=== PATIENT | male | born 1990 | race American Indian/Alaskan Native ===

== ENCOUNTER 2017-05-02 19:53 | Inpatient (IN) | payer SELFPAY ==
[2017-05-02] MEDS ORDERED: ZOFRAN ODT ONE (20:18)
[2017-05-02 20:34] LABS: Basophils # (Auto) 0.1 K/mm3 (0.0-0.1); Basophils % (Auto) 0.8 % (0.0-1.8); Hematocrit 46.9 % (35.5-45.6); Hemoglobin 15.6 gm/dl (11.8-15.2); Lymphocytes # (Auto) 1.9 K/mm3 (1.2-5.4); Lymphocytes % (Auto) 26.8 % (13.4-35.0); Mean Corpuscular HGB Conc 33 % (32-34); Mean Corpuscular Hemoglobin 27 pg (28-32); Mean Corpuscular Volume 82 fl (84-94); Monocytes # (Auto) 0.6 K/mm3 (0.0-0.8); Monocytes % (Auto) 8.8 % (0.0-7.3); Platelet Count 165 K/mm3 (140-440); Red Blood Count 5.69 M/mm3 (3.65-5.03); Red Cell Distribution Width 13.3 % (13.2-15.2)
[2017-05-02 20:53] LABS: Alanine Aminotransferase 74 units/L (7-56); Albumin 3.9 g/dL (3.9-5); BUN/Creatinine Ratio 11; Blood Urea Nitrogen 8 mg/dL (9-20); Calcium 8.5 mg/dL (8.4-10.2); Hemolysis Index 23
[2017-05-02] MEDS ORDERED: NACL 0.9% 1000 ML 1,000 ML IV ONE (22:51)
[2017-05-02] MEDS ORDERED: ZOFRAN IV ONE (22:51)
[2017-05-02 22:56] LABS: Bilirubin,Urine NEG (Negative); Blood,Urine NEG (Negative); Color,Urine Yellow (Yellow); Mucus,Urine FEW /HPF; Urobilinogen,Urine < 2.0 mg/dL (<2.0)
[2017-05-02 23:32] LABS: Lipase 40 units/L (13-60)
--- NOTE | 2017-05-02 23:46 | Emergency Department Report ---
ED Abdominal Pain HPI - General Chief Complaint: Abdominal Pain Stated Complaint: ABD PAIN Time Seen by Provider: 05/02/17 22:39 Source: patient Mode of arrival: Ambulatory Limitations: No Limitations - History of Present Illness Initial Comments: 4 days ago, states he was weak, coughing, sore throat, then abdominal pain, then vomiting and diarrhea. No previous history of these constellation of symptoms before, was diagnosed with diabetes 2 years ago, He has not had any insulin since january, reports that his insurance has not "kicked in." Chest pain with cough and difficulty breathing. MD Complaint: abdominal pain -: Gradual Location: diffuse Radiation: other (weakness) Migration to: no migration Severity: moderate Severity scale (0 -10): 0 Quality: other (soreness, then sharp) Consistency: intermittent Improves With: nothing Worsens With: nothing Associated Symptoms: nausea, vomiting, diarrhea, fever, chills. denies: dysuria , hematemesis, hematochezia, melena - Related Data Allergies Allergy/AdvReac Type Severity Reaction Status Date / Time No Known Allergies Allergy Unverified 05/02/17 20:12 ED Review of Systems ROS: Stated complaint: ABD PAIN Other details as noted in HPI Comment: All other systems reviewed and negative Constitutional: see HPI Eyes: as per HPI ENT: as per HPI Respiratory: see HPI Cardiovascular: as per HPI Endocrine: see HPI Gastrointestinal: as per HPI Genitourinary: as per HPI Musculoskeletal: as per HPI Skin: as per HPI Neurological: as per HPI Psychiatric: as per HPI ED Past Medical Hx - Past Medical History Previous Medical History?: Yes Hx Diabetes: Yes - Surgical History Past Surgical History?: No - Social History Smoking Status: Never Smoker ED Physical Exam - General Limitations: No Limitations General appearance: alert, in no apparent distress - Eye Eye exam: Present: normal appearance, PERRL, EOMI - ENT ENT exam: Present: normal exam - Neck Neck exam: Present: normal inspection - Respiratory Respiratory exam: Present: normal lung sounds bilaterally. Absent: respiratory distress, wheezes, rales, rhonchi - Cardiovascular Cardiovascular Exam: Present: regular rate, normal rhythm, normal heart sounds - GI/Abdominal GI/Abdominal exam: Present: soft, tenderness (mild generalized), normal bowel sounds - Extremities Exam Extremities exam: Present: normal inspection ED Course Vital Signs 05/02/17 05/02/17 20:08 22:30 Temperature 100.1 F H 100.2 F H Pulse Rate 106 H 89 Respiratory 18 16 Rate Blood Pressure 130/83 Blood Pressure 139/78 [Right] O2 Sat by Pulse 93 96 Oximetry - Reevaluation(s) Reevaluation #1: 05/03/17 01:19 CT findings are concerning, called hospitalist, we will admit the patient, begin IV antibiotics. No serum ketones and blood sugar has come down. 05/03/17 01:47 Discussed with hospitalist who advised to put in bridge orders, start antibiotics. ED Medical Decision Making - Lab Data Result diagrams: 05/02/17 20:23 05/02/17 20:23 Critical care attestation.: If time is entered above; I have spent that time in minutes in the direct care of this critically ill patient, excluding procedure time. ED Disposition Clinical Impression: Colitis Disposition: DC-09 OP ADMIT IP TO THIS HOSP Is pt being admited?: Yes Does the pt Need Aspirin: No Condition: Stable Referrals: PRIMARY CARE, [Primary Care Provider] - 3-5 Days
--- NOTE | 2017-05-03 01:00 | Cat Scan Report ---
FINAL REPORT EXAM: CT ABDOMEN PELVIS W CONTRAST HISTORY: Abdominal pain. Nausea and vomiting. TECHNIQUE: Axial CT images of the abdomen and pelvis were obtained, following the administration of intravenous contrast only. Axial delayed images through the abdomen and pelvis and coronal and sagittal reformatted images were also obtained. No prior studies are available for comparison. FINDINGS: There is moderate diffuse fatty infiltration of the liver. The biliary tree, gallbladder, pancreas, spleen, adrenal glands, and kidneys are unremarkable. There is no evidence of urinary tract obstruction. Evaluation of the bowel is limited due to lack of oral contrast. The stomach is collapsed, not well evaluated. There is mild abnormal wall thickening involving the cecum and ascending colon, indicating nonspecific colitis, most commonly due to inflammatory or infectious etiologies (including inflammatory bowel disease). There are foci of air in the proximal portion of the appendix. The mid to distal appendix is fluid-filled, with borderline distention, measuring 7-8 mm in diameter. No surrounding inflammatory stranding is seen. This is of uncertain etiology, and may be secondary to adjacent colitis, favored over acute appendicitis. However, correlation with physical exam is recommended. There are several subcentimeter lymph nodes interposed in the cecum and right psoas muscle. The rectum is collapsed, and underlying wall thickening cannot be evaluated. The abdominal aorta is normal in caliber. Multiple subcentimeter retroperitoneal and central mesenteric lymph nodes are seen, measuring up to 6 mm in maximal short axis. There is no free or loculated fluid collection. The prostate gland is normal in size. The urinary bladder is unremarkable. No discrete osseous abnormality is seen. There is scattered tiny foci of subsegmental dependent atelectasis. These findings were discussed with Dr. Pearce at time of interpretation 12:54 a.m. EST 05/03/2017. IMPRESSION: 1. Mild wall thickening involving the cecum and ascending colon, in keeping with nonspecific colitis, most commonly due to inflammatory or infectious etiologies (including inflammatory bowel disease/Crohn's disease). 2. Borderline distention of the portions of the appendix to 7-8 mm in diameter. This is of uncertain clinical significance and may be secondary to adjacent colitis, favored over acute appendicitis. No surrounding inflammatory changes. Correlation with physical exam and clinical history is recommended. 3. Moderate diffuse fatty infiltration of the liver.
[2017-05-03] MEDS ORDERED: ZOSYN/NS 3.375GM/50ML 3.375 GM/50 ML BAG IV SCH (02:00)
[2017-05-03] MEDS ORDERED: TYLENOL PO PRN (02:47)
[2017-05-03] MEDS ORDERED: ZOFRAN IV PRN (02:47)
[2017-05-03] MEDS ORDERED: MORPHINE IV PRN (02:52)
--- NOTE | 2017-05-03 03:06 | History and Physical Report ---
History of Present Illness Date of examination: 05/03/17 History of present illness: 26-year-old man at a history of diabetes comes emergency room with complaints of abdominal pain that started on Monday. Pain starts in the lower abdomen which she describes as a sharp pain, intermittent in nature every 30 seconds, intensity 8/10, radiating up all over his abdomen, he generally identify exacerbating or relieving factors. He also complaining of nausea and vomiting, diarrhea, nonbloody, at least 4-5 episodes a day. He denies recent antibiotic. Admits to fever chills. Also complaining of decreased energy Review Of Systems: Constitutional: no weight loss Ears, eyes, nose, mouth and throat: no nasal congestion, no nasal discharge, no sinus pressure, blurry vision, diplopia Neck: No neck pain or rigidity. Cardiovascular: No chest pain, palpitations Respiratory: No shortness of breath, cough Gastrointestinal: No hematochezia Genitourinary : no dysuria, frequency , hematuria Musculoskeletal: no muscle ache Integumentary: no rash, no pruritis Neurological: no focal weakness Endocrine: no cold or heat intolerance, no polyuria or polydipsia Hematologic/Lymphatic: no easy bruising, no easy bleeding, no gland swelling Allergic/Immunologic: no urticaria, no angioedema. PAST MEDICAL HISTORY: Diabetes PAST SURGICAL HISTORY: None SOCIAL HISTORY: Denies alcohol, tobacco, drugs FAMILY HISTORY: Hypertension, diabetes Medications and Allergies Allergies Allergy/AdvReac Type Severity Reaction Status Date / Time No Known Allergies Allergy Unverified 05/02/17 20:12 Active Meds: Active Medications Acetaminophen (Tylenol) 650 mg PO Q4H PRN PRN Reason: Pain MILD(1-3)/Fever >100.5/BUTTS Sodium Chloride (Nacl 0.45% 1000 Ml) 1,000 mls @ 125 mls/hr IV DIRECT ANNEMARIE Piperacillin Sod/Tazobactam Sod (Zosyn/Ns 4.5gm/100ml) 4.5 gm in 100 mls @ 200 mls/hr IV Q8H ANNEMARIE; Protocol Morphine Sulfate (Morphine) 2 mg IV Q4H PRN PRN Reason: Pain, Moderate (4-6) Ondansetron HCl (Zofran) 4 mg IV Q8H PRN PRN Reason: Nausea And Vomiting Exam - Physical Exam Narrative exam: Gen. appearance: Patient lying in bed, no apparent distress HEENT: Normocephalic, atraumatic, pupils equally round and reactive to light, extraocular movement intact, and no sclericterus,. No JVD or thyromegaly or nodule,neck supple, no carotid bruit ,mucous membranes moist, no exudate or erythema Heart: S1, S2, regular rate and rhythm Lungs: Clear to auscultation bilaterally, breathing comfortable Abdomen: Positive bowel sounds, tender lower quadrants, nondistended, no organomegaly Extremity: No edema, cyanosis, clubbing Skin: No rash, nodules, warm, dry Neuro: Oriented 3, cranial nerves II-12 intact, speech is fluent, motor and sensory intact - Constitutional Vitals: Temp Pulse Resp BP Pulse Ox 99.3 F 88 14 102/54 97 05/03/17 02:26 05/03/17 02:26 05/03/17 02:26 05/03/17 02:26 05/03/17 02:26 Results - Labs CBC & Chem 7: 05/02/17 20:23 05/02/17 20:23 Labs: Abnormal lab results 05/02/17 05/02/17 05/02/17 Range/Units 20:23 20:23 23:16 RBC 5.69 H (3.65-5.03) M/mm3 Hgb 15.6 H (11.8-15.2) gm/dl Hct 46.9 H (35.5-45.6) % MCV 82 L (84-94) fl MCH 27 L (28-32) pg [place] % (Auto) 8.8 H (0.0-7.3) % Chloride 94.0 L (98-107) mmol/L BUN 8 L (9-20) mg/dL Creatinine 0.7 L (0.8-1.5) mg/dL Glucose 301 H (75-100) mg/dL POC Glucose 263 H (70-105) AST 79 H (5-40) units/L ALT 74 H (7-56) units/L - Imaging and Cardiology EKG: image reviewed CT scan - abdomen: report reviewed CT scan - pelvis: report reviewed Assessment and Plan Assessment Acute colitis Borderline distention of the appendix Diabetes Plan Admit to medicine Placed on bowel rest Start IV Zosyn, IV morphine, antiemetics Consult GI, surgery Check fingersticks and initiate insulin sliding scale DVT prophylaxis
[2017-05-03] MEDS: NACL 0.45% 1000 ML 1,000 ML IV SCH ×3 (05:09→23:12)
[2017-05-03] MEDS: ZOSYN/NS 4.5GM/100ML 4.5 GM/100 ML VIAL IV SCH ×3 (10:00→23:10)
[2017-05-03] MEDS ORDERED: D50W (25GM) Syringe IV PRN (13:25)
[2017-05-03] MEDS: NOVOLOG SUB-Q SCH ×2 (17:00→23:10)
--- NOTE | 2017-05-03 17:35 | Event Note ---
Date: 05/03/17 Full consult dictated - if tolerating po in am ok to d/c on po antibiotics w/ colonoscopy as outpt
--- NOTE | 2017-05-03 22:24 | Consultation ---
INDICATIONS: 1. Abdominal pain. 2. Colitis. HISTORY OF PRESENT ILLNESS: The patient is a 26-year-old black male who presents to the Emergency Room for abdominal pain. The patient has a history of diabetes. The patient reports symptoms of lower abdominal pain started Mc, 4-5 days ago. He reports some nausea, vomiting with some diarrhea, but nonbloody. He reports no history of this in the past. Denies any GERD. Denies any recent diet or medication changes. The patient subsequently came to Emergency Room where he had a CT scan showing colitis. He subsequently admitted and GI consulted. PAST MEDICAL HISTORY: Diabetes. MEDICATIONS: See chart. ALLERGIES: No known drug allergies. SOCIAL HISTORY: Denies alcohol, tobacco, or IV drug abuse. FAMILY HISTORY: Negative for colon cancer, IBD, or liver disease. REVIEW OF SYSTEMS: GENERAL: Reports mild weakness. HEENT: No visual complaints or tinnitus. PULMONARY: No shortness of breath. CARDIOVASCULAR: No chest pain. GASTROINTESTINAL: Reports abdominal pain. All points of 13-point review of systems otherwise negative. PHYSICAL EXAMINATION: VITAL SIGNS: Temperature of 99.3, pulse 70, respiration 18, blood pressure 130/80. GENERAL: Fairly nourished male in no acute distress. HEENT: Pupils equal, round and reactive. PULMONARY: Clear to auscultation bilaterally. CARDIOVASCULAR: Regular rhythm. Normal S1, S2. ABDOMEN: Positive bowel sounds, soft. SKIN: No obvious rashes. LABORATORY DATA: Pertinent for white count of 7, hemoglobin and hematocrit of 15 and 46, platelet count of 165. Chem-7 within normal limits. AST, ALT of 79 and 74, but otherwise benign. CT scan showed signs of mild wall thickening along the right colon, but otherwise benign. ASSESSMENT AND PLAN: A 26-year-old black male presents with 4-5 days of lower abdominal pain with CT scan showing right-sided colitis, possibility of infectious versus inflammatory process versus other. The patient is doing well. He is tolerating p.o., including a regular diet. Management is noted below. PLAN: 1. Advance diet as tolerated. 2. Continue IV antibiotics with Levaquin and Flagyl. We will plan to complete 7-10 day course as an outpatient. 3. The patient will require colonoscopy as an outpatient in 3-4 weeks. 4. If stable in a.m., okay to discharge from GI standpoint with followup. JOB# [id number] HIEU/PUNEET HOPSON
[2017-05-04 06:11] LABS: Basophils % (Auto) 0.6 % (0.0-1.8); Eosinophils % (Auto) 0.3 % (0.0-4.3); Hematocrit 39.6 % (35.5-45.6); Hemoglobin 13.3 gm/dl (11.8-15.2); Lymphocytes # (Auto) 1.5 K/mm3 (1.2-5.4); Lymphocytes % (Auto) 32.7 % (13.4-35.0); Mean Corpuscular HGB Conc 34 % (32-34); Mean Corpuscular Hemoglobin 28 pg (28-32); Mean Corpuscular Volume 82 fl (84-94); Monocytes # (Auto) 0.5 K/mm3 (0.0-0.8); Platelet Count 141 K/mm3 (140-440); Red Blood Count 4.83 M/mm3 (3.65-5.03); Red Cell Distribution Width 13.1 % (13.2-15.2)
[2017-05-04 06:30] LABS: BUN/Creatinine Ratio 9; Blood Urea Nitrogen 6 mg/dL (9-20); Calcium 7.7 mg/dL (8.4-10.2); Hemolysis Index 9
[2017-05-04] MEDS: ZOSYN/NS 4.5GM/100ML 4.5 GM/100 ML VIAL IV SCH ×2 (08:27→16:14)
[2017-05-04] MEDS: NOVOLOG SUB-Q SCH ×2 (08:28→12:00)
[2017-05-04 08:37] VITALS: BP 104/54
--- NOTE | 2017-05-04 12:30 | Discharge Summary ---
Providers - Providers Date of Admission: 05/03/17 01:48 Attending physician: CRAIG RUBI MD 05/03/17 02:47 Consult to Physician [CONS] Routine Consulting Provider: CIPRIANO VASQUES Reason For Exam: colitis Place consult to:: dr. vasques Notified:: answering service Phone number called:: Was contact made?: Yes If yes, spoke with:: madhavi Time called:: 08:37 05/03/17 13:25 Consult to Dietitian/Nutrition [CONS] Routine Physician Instructions: Reason For Exam: Reason for Consult: Diet education Primary care physician: PRODUCTION LEADER Hospitalization Condition: Stable Hospital course: 26-year-old male with a past medical history of type 2 diabetes who presented to the hospital with acute colitis. He was treated with IV antibiotics antiemetics, he was started on insulin sliding scale. It turned out that he had lost his insurance and that was why he was not on treatment for this. He was counseled that his A1c was very much elevated and that he needs to stay on insulins. He is medically optimized, he received GI consultation and he is being discharged with an antibiotic course for treatment of acute bacterial colitis. Discharge diagnoses Acute colitis Type 2 diabetes, insulin-dependent URTI Disposition: - TO HOME OR SELFCARE Time spent for discharge: 33 minutes Core Measure Documentation - Palliative Care Palliative Care/ Comfort Measures: Not Applicable - Core Measures Any of the following diagnoses?: none Exam - Constitutional Vitals: Temp Pulse Resp BP Pulse Ox 99.2 F 84 20 104/54 98 05/04/17 08:07 05/04/17 08:07 05/04/17 08:07 05/04/17 08:07 05/04/17 10:18 General appearance: Present: no acute distress, well-nourished - EENT Eyes: Present: PERRL ENT: hearing intact, clear oral mucosa - Neck Neck: Present: supple, normal ROM - Respiratory Respiratory effort: normal Respiratory: bilateral: CTA - Cardiovascular Heart Sounds: Present: S1 & S2. Absent: rub, click - Extremities Extremities: pulses symmetrical, No edema Peripheral Pulses: within normal limits - Abdominal General gastrointestinal: Present: soft, non-tender, non-distended, normal bowel sounds Male genitourinary: Present: normal - Integumentary Integumentary: Present: clear, warm, dry - Musculoskeletal Musculoskeletal: gait normal, strength equal bilaterally - Psychiatric Psychiatric: appropriate mood/affect, intact judgment & insight - Neurologic Neurologic: CNII-XII intact, moves all extremities Plan Follow up with: PRIMARY CARE, [Primary Care Provider] - 3-5 Days [facility] [Outside] - 7 Days Forms: Work/School Release Form Prescriptions: Ciprofloxacin HCl [Ciprofloxacin TAB] 500 mg PO Q12H #14 tab guaiFENesin [Robitussin] 200 mg PO Q4HR #1 bottle Insulin NPH/Regular [Novolin 70/30] 5 unit SQ BIDDIAB #1 vial metroNIDAZOLE [Flagyl] 500 mg PO Q8HR #21 tablet Other Discharge Orders: Glucometer supplies[Amb] Location: None Selected Glucometer (Amb) Location: None Selected
--- NOTE | 2017-05-04 15:29 | Gastroenterology Progress Note ---
Assessment and Plan GI: resolving colitis - will need colonoscopy as outpt - complete po antibiotics as outpt - ok to d/c w/ follow up, will sign off Subjective Date of service: 05/04/17 Interval history: - pt reports feeling better Objective - Constitutional Vitals: Temp Pulse Resp BP Pulse Ox 99.2 F 84 20 104/54 98 05/04/17 08:07 05/04/17 08:07 05/04/17 08:07 05/04/17 08:07 05/04/17 10:18 General appearance: no acute distress - EENT Eyes: PERRL - Respiratory Respiratory: bilateral: CTA - Cardiovascular Rhythm: regular Heart Sounds: Present: S1 & S2 - Gastrointestinal General gastrointestinal: Present: soft, non-tender, non-distended - Labs CBC & Chem 7: 05/04/17 05:42 05/04/17 05:42 Labs: Laboratory Results - last 24 hr 05/03/17 05/03/17 05/04/17 16:15 22:04 05:42 WBC 4.6 RBC 4.83 Hgb 13.3 Hct 39.6 D MCV 82 L MCH 28 MCHC 34 RDW 13.1 L Plt Count 141 Lymph % (Auto) 32.7 [place] % (Auto) 11.0 H Eos % (Auto) 0.3 Baso % (Auto) 0.6 Lymph # 1.5 [place] # 0.5 Eos # 0.0 Baso # 0.0 Seg Neutrophils % 55.4 Seg Neutrophils # 2.5 Sodium Potassium Chloride Carbon Dioxide Anion Gap BUN Creatinine Estimated GFR BUN/Creatinine Ratio Glucose POC Glucose 181 H 234 H Hemoglobin A1c Calcium 05/04/17 05/04/17 05/04/17 05:42 05:42 06:16 WBC RBC Hgb Hct MCV MCH MCHC RDW Plt Count Lymph % (Auto) [place] % (Auto) Eos % (Auto) Baso % (Auto) Lymph # [place] # Eos # Baso # Seg Neutrophils % Seg Neutrophils # Sodium 140 Potassium 3.8 Chloride 98.8 Carbon Dioxide 28 Anion Gap 17 BUN 6 L Creatinine 0.7 L Estimated GFR > 60 BUN/Creatinine Ratio 9 Glucose 231 H POC Glucose 198 H Hemoglobin A1c 15.2 H Calcium 7.7 L 05/04/17 11:36 WBC RBC Hgb Hct MCV MCH MCHC RDW Plt Count Lymph % (Auto) [place] % (Auto) Eos % (Auto) Baso % (Auto) Lymph # [place] # Eos # Baso # Seg Neutrophils % Seg Neutrophils # Sodium Potassium Chloride Carbon Dioxide Anion Gap BUN Creatinine Estimated GFR BUN/Creatinine Ratio Glucose POC Glucose 201 H Hemoglobin A1c Calcium
[2017-05-04] MEDS ORDERED: HumaLOG SUB-Q SCH (16:30)
== END 2017-05-04 17:10 | disposition home or self-care (01) | DRG 392 ==
LOC: ED 19:53 → 3A 05-03 01:48
PROVIDERS: ADMIT Internal Medicine; ATTEND Internal Medicine
DX: A09 Infectious gastroenteritis and colitis, unspecified (principal); E11.9 Type 2 diabetes mellitus without complications; J06.9 Acute upper respiratory infection, unspecified; Z79.4 Long term (current) use of insulin; Z82.49 Family history of ischemic heart disease and other diseases of the circulatory system; Z83.3 Family history of diabetes mellitus
CPT/HCPCS: 36415; 74177; 80048; 80053; 81001; 82010; 82140; 82150; 82962; 83036; 83690; 85025; 96361; 96374; 99284; J1815; J2405; J2543; J7030; Q0162; Q9967

== ENCOUNTER 2017-05-22 21:16 | Inpatient (IN) | payer SELFPAY ==
[2017-05-22 21:55] LABS: Hematocrit 40.3 % (35.5-45.6); Hemoglobin 13.2 gm/dl (11.8-15.2); Mean Corpuscular HGB Conc 33 % (32-34); Mean Corpuscular Hemoglobin 27 pg (28-32); Mean Corpuscular Volume 82 fl (84-94); Platelet Count 288 K/mm3 (140-440); Red Blood Count 4.92 M/mm3 (3.65-5.03); Red Cell Distribution Width 13.5 % (13.2-15.2)
[2017-05-22 22:12] LABS: BUN/Creatinine Ratio 9; Blood Urea Nitrogen 6 mg/dL (9-20); Calcium 8.5 mg/dL (8.4-10.2); Hemolysis Index 0
[2017-05-23] MEDS ORDERED: VANCOMYCIN/NS 1 GM/250 ML 1 GM/250 ML BAG IV ONE (02:41)
[2017-05-23] MEDS ORDERED: ZOSYN/NS 4.5GM/100ML 4.5 GM/100 ML VIAL IV ONE (02:41)
[2017-05-23] MEDS ORDERED: ZOFRAN IV ONE (02:42)
[2017-05-23] MEDS ORDERED: SUBLIMAZE IV ONE (02:42)
--- NOTE | 2017-05-23 02:55 | Emergency Department Report ---
- General Chief complaint: Skin/Abscess/Foreign Body Stated complaint: RIGHT LEG SWELLING Time Seen by Provider: 05/23/17 02:37 Source: patient Mode of arrival: Ambulatory Limitations: No Limitations - History of Present Illness Initial comments: Patient is 26-year-old male with history of diabetes on insulin. Patient presented with right thigh cellulitis just above the left knee. Patient stated that his symptoms started 4 days ago he just got worse today. Patient denied any nausea or vomiting. Patient stated that he is been having a low-grade fever. MD complaint: abscess/boil -: days(s) Location: LLE Severity: moderate Severity scale (0 -10): 9 Quality: stabbing Consistency: constant Associated symptoms: fever - Related Data Previous Rx's Medication Instructions Recorded Last Taken Type Ciprofloxacin HCl [Ciprofloxacin 500 mg PO Q12H #14 tab 05/04/17 Unknown Rx TAB] Insulin NPH/Regular [Novolin 70/30] 5 unit SQ BIDDIAB #1 vial 05/04/17 Unknown Rx guaiFENesin [Robitussin] 200 mg PO Q4HR #1 bottle 05/04/17 Unknown Rx metroNIDAZOLE [Flagyl] 500 mg PO Q8HR #21 tablet 05/04/17 Unknown Rx Allergies Allergy/AdvReac Type Severity Reaction Status Date / Time No Known Allergies Allergy Unverified 05/02/17 20:12 Abscess Boil HPI - HPI Chief Complaint: Skin/Abscess/Foreign Body Stated Complaint: RIGHT LEG SWELLING Time Seen by Provider: 05/23/17 02:37 Home Medications: Previous Rx's Medication Instructions Recorded Last Taken Type Ciprofloxacin HCl [Ciprofloxacin 500 mg PO Q12H #14 tab 05/04/17 Unknown Rx TAB] Insulin NPH/Regular [Novolin 70/30] 5 unit SQ BIDDIAB #1 vial 05/04/17 Unknown Rx guaiFENesin [Robitussin] 200 mg PO Q4HR #1 bottle 05/04/17 Unknown Rx metroNIDAZOLE [Flagyl] 500 mg PO Q8HR #21 tablet 05/04/17 Unknown Rx Allergies/Adverse Reactions: Allergies Allergy/AdvReac Type Severity Reaction Status Date / Time No Known Allergies Allergy Unverified 05/02/17 20:12 ED Review of Systems ROS: Stated complaint: RIGHT LEG SWELLING Other details as noted in HPI Comment: All other systems reviewed and negative Constitutional: chills, fever Respiratory: denies: cough, orthopnea, shortness of breath, SOB with exertion, SOB at rest, wheezing Cardiovascular: denies: chest pain, palpitations, dyspnea on exertion Gastrointestinal: denies: abdominal pain, nausea, vomiting, diarrhea, constipation, hematemesis Skin: rash ED Past Medical Hx - Past Medical History Hx Congestive Heart Failure: No Hx Diabetes: Yes Hx Asthma: No Hx COPD: No Hx HIV: No - Social History Smoking Status: Never Smoker Substance Use Type: None - Medications Home Medications: Home Medications Medication Instructions Recorded Confirmed Last Taken Type Ciprofloxacin HCl [Ciprofloxacin 500 mg PO Q12H #14 tab 05/04/17 Unknown Rx TAB] Insulin NPH/Regular [Novolin 70/30] 5 unit SQ BIDDIAB #1 vial 05/04/17 Unknown Rx guaiFENesin [Robitussin] 200 mg PO Q4HR #1 bottle 05/04/17 Unknown Rx metroNIDAZOLE [Flagyl] 500 mg PO Q8HR #21 tablet 05/04/17 Unknown Rx ED Physical Exam - General Limitations: No Limitations General appearance: alert, in distress (due to pain) - Head Head exam: Present: atraumatic, normocephalic, normal inspection - Eye Eye exam: Present: normal appearance, PERRL - ENT ENT exam: Present: normal exam, normal orophraynx, mucous membranes moist - Neck Neck exam: Present: normal inspection, full ROM. Absent: tenderness, meningismus, lymphadenopathy, thyromegaly - Respiratory Respiratory exam: Present: normal lung sounds bilaterally. Absent: respiratory distress, wheezes, rales, rhonchi, accessory muscle use, decreased breath sounds , prolonged expiratory - Cardiovascular Cardiovascular Exam: Present: tachycardia - GI/Abdominal GI/Abdominal exam: Present: soft, normal bowel sounds. Absent: distended, tenderness, guarding, rebound, rigid, organomegaly, mass, bruit, pulsatile mass , hernia - Extremities Exam Extremities exam: Present: tenderness, normal capillary refill, other (right lower thigh redness, erythema. Not fluctuant.). Absent: normal inspection, pedal edema, joint swelling, calf tenderness - Back Exam Back exam: Present: normal inspection, full ROM. Absent: tenderness, CVA tenderness (R), CVA tenderness (L), muscle spasm, paraspinal tenderness, vertebral tenderness - Neurological Exam Neurological exam: Present: alert, oriented X3, CN II-XII intact, normal gait - Skin Skin exam: Present: warm, intact, normal color. Absent: cyanosis, diaphoretic ED Course Vital Signs 05/22/17 05/22/17 05/23/17 21:31 21:41 02:51 Temperature 99.5 F 99.5 F Pulse Rate 105 H 105 H Respiratory 16 18 18 Rate Blood Pressure 154/90 154/90 O2 Sat by Pulse 97 97 97 Oximetry - Reevaluation(s) Reevaluation #1: 05/23/17 02:58 No clinical evidence of necrotizing fasciitis at this moment. No crepitus felt. There is not fluctuant so as not an abscess yet. Patient will need IV antibiotic and further management in the hospital. ED Medical Decision Making - Lab Data Result diagrams: 05/22/17 21:48 05/22/17 21:48 - Medical Decision Making I discussed the patient was Dr. Mary Ann Combs, I presented the patient, she agreed to admit the patient to our service. Critical care attestation.: If time is entered above; I have spent that time in minutes in the direct care of this critically ill patient, excluding procedure time. ED Disposition Clinical Impression: Cellulitis of right thigh, Diabetes Disposition: DC-09 OP ADMIT IP TO THIS HOSP Is pt being admited?: Yes Condition: Stable Instructions: Diabetes Mellitus Type 2 in Adults (ED) Referrals: PRIMARY CARE, [Primary Care Provider] - 3-5 Days
[2017-05-23] MEDS ORDERED: VANCOMYCIN/0.45 NS 1 GM/250 ML 1 GM/250 ML BAG IV ONE (03:00)
[2017-05-23] MEDS: NACL 0.9% 1000 ML 1,000 ML IV SCH ×2 (03:15→14:33)
[2017-05-23] MEDS ORDERED: D50W (25GM) Syringe IV PRN (03:41)
[2017-05-23] MEDS ORDERED: ZOFRAN IV PRN (03:41)
[2017-05-23] MEDS ORDERED: SODIUM CHLORIDE FLUSH SYRINGE 10 ML IV PRN (03:41)
--- NOTE | 2017-05-23 03:50 | History and Physical Report ---
History of Present Illness Date of examination: 05/23/17 History of present illness: 26 year old man with Diabetes com to the emergency room because he developed a bump on the back of the right thigh. The bump got bigger and increased in size. He has difficulty walking due to pain Review Of Systems: Constitutional: no weight loss Ears, eyes, nose, mouth and throat: no nasal congestion, no nasal discharge, no sinus pressure, blurry vision, diplopia Neck: No neck pain or rigidity. Cardiovascular: no chest pain, orthopnea, palpitations Respiratory: NO cough, shortness of breath Gastrointestinal: no abdominal pain, hematochezia Genitourinary : no dysuria, frequency , hematuria Musculoskeletal: no muscle ache Integumentary: no rash, no pruritis Neurological: no parathesias, focal weakness Endocrine: no cold or heat intolerance, no polyuria or polydipsia Hematologic/Lymphatic: no easy bruising, no easy bleeding, no gland swelling Allergic/Immunologic: no urticaria, no angioedema. PAST MEDICAL HISTORY: Diabetes PAST SURGICAL HISTORY: None SOCIAL HISTORY: Denies alcohol, tobacco, drugs FAMILY HISTORY: Hypertension, diabetes Medications and Allergies Allergies Allergy/AdvReac Type Severity Reaction Status Date / Time No Known Allergies Allergy Unverified 05/02/17 20:12 Home Medications Medication Instructions Recorded Confirmed Last Taken Type Ciprofloxacin HCl [Ciprofloxacin 500 mg PO Q12H #14 tab 05/04/17 Unknown Rx TAB] Insulin NPH/Regular [Novolin 70/30] 5 unit SQ BIDDIAB #1 vial 05/04/17 Unknown Rx guaiFENesin [Robitussin] 200 mg PO Q4HR #1 bottle 05/04/17 Unknown Rx metroNIDAZOLE [Flagyl] 500 mg PO Q8HR #21 tablet 05/04/17 Unknown Rx Active Meds: Active Medications Sodium Chloride (Nacl 0.9% 1000 Ml) 1,000 mls @ 150 mls/hr IV DIRECT ANNEMARIE Last Admin: 05/23/17 03:15 Dose: 150 mls/hr Vancomycin HCl (Vancomycin/0.45 Ns 1 Gm/250 Ml) 1 gm in 250 mls @ 250 mls/hr IV ONCE.ED ONE Stop: 05/23/17 03:59 Exam - Physical Exam Narrative exam: Gen. appearance: Patient lying in bed, no apparent distress HEENT: Normocephalic, atraumatic, pupils equally round and reactive to light, extraocular movement intact, and no sclericterus,. No JVD or thyromegaly or nodule,neck supple, no carotid bruit ,mucous membranes moist, no exudate or erythema Heart: S1, S2, regular rate and rhythm Lungs: Clear to auscultation bilaterally, breathing comfortable Abdomen: Positive bowel sounds, nontender, nondistended, no organomegaly Extremity: Right post thigh:erythema, indurated, tender, No edema, cyanosis, clubbing Skin: No rash, nodules, warm, dry Neuro: Oriented 3, cranial nerves II-12 intact, speech is fluent, motor and sensory intact - Constitutional Vitals: Temp Pulse Resp BP Pulse Ox 99.5 F 105 H 18 154/90 97 05/22/17 21:41 05/22/17 21:41 05/23/17 03:17 05/23/17 03:17 05/23/17 02:51 Results - Labs CBC & Chem 7: 05/22/17 21:48 05/22/17 21:48 Labs: Abnormal lab results 05/22/17 05/22/17 Range/Units 21:48 21:48 WBC 16.5 H (4.5-11.0) K/mm3 MCV 82 L (84-94) fl MCH 27 L (28-32) pg Potassium 3.5 L (3.6-5.0) mmol/L BUN 6 L (9-20) mg/dL Creatinine 0.7 L (0.8-1.5) mg/dL Glucose 181 H (75-100) mg/dL Assessment and Plan Assessment Cellulitis of posterior thigh Diabetes Plan Admit to medicine Start Iv zosyn, s/p vancomycin IV morphine, DVT prophalaxis Initiate insulin sliding scale, check fingerstick
[2017-05-23] MEDS: TYLENOL PO PRN ×2 (08:36→16:49)
[2017-05-23] MEDS: HumuLIN R SUB-Q SCH ×3 (08:37→16:51)
[2017-05-23] MEDS: ZOSYN/NS 4.5GM/100ML 4.5 GM/100 ML VIAL IV SCH ×2 (10:55→18:30)
[2017-05-23] MEDS: LOVENOX SUB-Q SCH (10:56)
[2017-05-23] MEDS: SODIUM CHLORIDE FLUSH SYRINGE 10 ML IV SCH (10:57)
[2017-05-23] MEDS: MORPHINE IV PRN (14:33)
[2017-05-23] MEDS: PERCOCET 5/325 PO PRN (16:47)
[2017-05-24] MEDS: HumuLIN R SUB-Q SCH ×5 (00:18→22:58)
[2017-05-24] MEDS: ZOSYN/NS 4.5GM/100ML 4.5 GM/100 ML VIAL IV SCH ×3 (02:10→17:15)
[2017-05-24] MEDS: PERCOCET 5/325 PO PRN ×3 (02:11→22:26)
[2017-05-24] MEDS: SODIUM CHLORIDE FLUSH SYRINGE 10 ML IV SCH ×3 (02:12→22:29)
[2017-05-24] MEDS: NACL 0.9% 1000 ML 1,000 ML IV SCH ×3 (02:20→18:41)
[2017-05-24] MEDS: MORPHINE IV PRN (08:34)
[2017-05-24 08:52] LABS: BUN/Creatinine Ratio 7; Blood Urea Nitrogen 4 mg/dL (9-20); Hemolysis Index 6
[2017-05-24 09:17] LABS: Basophils % (Auto) 0.1 % (0.0-1.8); Eosinophils % (Auto) 0.2 % (0.0-4.3); Hemoglobin 10.7 gm/dl (11.8-15.2); Lymphocytes # (Auto) 2.3 K/mm3 (1.2-5.4); Lymphocytes % (Auto) 20.5 % (13.4-35.0); Mean Corpuscular HGB Conc 33 % (32-34); Mean Corpuscular Hemoglobin 27 pg (28-32); Mean Corpuscular Volume 83 fl (84-94); Monocytes # (Auto) 1.5 K/mm3 (0.0-0.8); Monocytes % (Auto) 13.5 % (0.0-7.3); Platelet Count 215 K/mm3 (140-440); Red Blood Count 3.99 M/mm3 (3.65-5.03); Red Cell Distribution Width 13.3 % (13.2-15.2)
--- NOTE | 2017-05-24 09:17 | XRay Report ---
RIGHT FEMUR RADIOGRAPHS INDICATION: Ulcer on right thigh. COMPARISON: None similar. FINDINGS: Frontal right femur views, 2 images, demonstrate grossly intact bones and included hip and knee joints. Diffuse superficial heterogeneity/edema of the imaged thigh though not excluded. No definite soft tissue air. CONCLUSION: No acute right femur bony abnormality, though thigh edema not excluded. Please correlate. Thank you for the opportunity to participate in this patient's care.
[2017-05-24] MEDS: LOVENOX SUB-Q SCH (10:55)
[2017-05-24] MEDS: PEPCID PO SCH ×2 (13:45→22:26)
--- NOTE | 2017-05-24 15:23 | Consultation ---
History of Present Illness Consult date: 05/24/17 Reason for consult: other (leg abscess) Requesting physician: LEESA WOODARD Chief complaint: right leg pain and swelling - History of present illness History of present illness: 26 with a history of diabetes who presents with approximately two-week history right leg discomfort which eventually progressed to swelling last . Since then the swelling worsen the pain increased. He presented to the emergency room for evaluation. General surgeries consult for evaluation of possible abscess. Patient reports mild fevers chills. Denies any nausea vomiting. Reports pain down the back of the leg. No other complaints. He has never had anything like this before Past History Past Medical History: diabetes Past Surgical History: hernia repair (inguinal as a child) Social history: no significant social history. denies: smoking, alcohol abuse Family history: no significant family history Medications and Allergies Allergies Allergy/AdvReac Type Severity Reaction Status Date / Time No Known Allergies Allergy Unverified 05/02/17 20:12 Home Medications Medication Instructions Recorded Confirmed Last Taken Type Ibuprofen [Motrin] 400 mg PO Q6H PRN 05/23/17 05/23/17 Unknown History Insulin NPH/Regular [Novolin 70/30] 5 units SUB-Q BID 05/23/17 05/23/17 Unknown History Active Meds: Active Medications Acetaminophen (Tylenol) 650 mg PO Q4H PRN PRN Reason: Pain MILD(1-3)/Fever >100.5/BUTTS Last Admin: 05/23/17 16:49 Dose: 650 mg Dextrose (D50w (25gm) Syringe) 50 ml IV PRN PRN PRN Reason: Hypoglycemia Enoxaparin Sodium (Lovenox) 40 mg SUB-Q QDAY ANNEMARIE Last Admin: 05/24/17 10:55 Dose: 40 mg Famotidine (Pepcid) 20 mg PO BID ANNEMARIE Last Admin: 05/24/17 13:45 Dose: 20 mg Sodium Chloride (Nacl 0.9% 1000 Ml) 1,000 mls @ 150 mls/hr IV DIRECT ANNEMARIE Last Admin: 05/24/17 10:56 Dose: 150 mls/hr Piperacillin Sod/Tazobactam Sod (Zosyn/Ns 4.5gm/100ml) 4.5 gm in 100 mls @ 200 mls/hr IV Q8H ANNEMARIE; Protocol Last Admin: 05/24/17 10:55 Dose: 200 mls/hr Insulin Human Isoph/Insulin Regular (Humulin 70/30) 5 unit SUB-Q BIDDIAB [facility] Last Admin: 05/24/17 08:29 Dose: 5 unit Insulin Human Regular (Humulin R) 0 units SUB-Q ACHS [facility]; Protocol Last Admin: 05/24/17 11:30 Dose: Not Given Morphine Sulfate (Morphine) 2 mg IV Q4H PRN PRN Reason: Pain, Moderate (4-6) Last Admin: 05/24/17 08:34 Dose: 2 mg Ondansetron HCl (Zofran) 4 mg IV Q8H PRN PRN Reason: Nausea And Vomiting Oxycodone/Acetaminophen (Percocet 5/325) 1 tab PO Q6H PRN PRN Reason: Pain, Moderate (4-6) Last Admin: 05/24/17 13:45 Dose: 1 tab Sodium Chloride (Sodium Chloride Flush Syringe 10 Ml) 10 ml IV BID [facility] Last Admin: 05/24/17 10:56 Dose: 10 ml Sodium Chloride (Sodium Chloride Flush Syringe 10 Ml) 10 ml IV PRN PRN PRN Reason: LINE FLUSH Review of Systems - Constitutional fever, no chills, no sweats, no night sweats, no weakness, no lethargy, no chronic pain - Cardiovascular no chest pain - Respiratory cough (reports that cost comes when his pain increases in the leg), no cough with sputum, no shortness of breath - Gastrointestinal no abdominal pain - Genitourinary no dysuria - Muskuloskeletal no muscle weakness right: other (right thigh pain) - Hematologic/Lymphatic no easy bruising, no easy bleeding Exam Vital Signs Temp Pulse Resp BP Pulse Ox 99.5 F 105 H 16 154/90 97 05/22/17 21:31 05/22/17 21:31 05/22/17 21:31 05/22/17 21:31 05/22/17 21:31 - General physical appearance Positive: well developed, well nourished, no distress, no pain - Eyes Positive: normal occular movement - Respiratory Positive: normal expansion, normal respiratory effort - Extremities Extremities: No edema, normal temperature, normal color Extremity abnormal: other (the left leg was completely normal. Right leg showed a large swelling in the posterior aspect of the thigh. The area of induration was 18 x 22 cm. There was a central area of superficial epidermal necrosis. This measured approximately 3 x 5 cm. Mild pressure seem to show some purulent drainage coming out. This area was exquisitely tender. The rest of the thigh and lower leg appeared normal. There was no a ascending erythema that I appreciated) - Neurologic Neurologic: alert and oriented to time, place and person, motor strength and sensation are grossly intact - Psychiatric Psychiatric: appropriate mood/affect, intact judgment & insight, memory intact, cooperative Results - Labs 05/24/17 08:15 05/24/17 08:15 Abnormal lab results 05/23/17 05/24/17 05/24/17 Range/Units 16:28 06:00 08:15 WBC 11.2 H (4.5-11.0) K/mm3 Hgb 10.7 L (11.8-15.2) gm/dl Hct 33.0 L D (35.5-45.6) % MCV 83 L (84-94) fl MCH 27 L (28-32) pg [place] % (Auto) 13.5 H (0.0-7.3) % [place] # 1.5 H (0.0-0.8) K/mm3 Potassium (3.6-5.0) mmol/L BUN (9-20) mg/dL Creatinine (0.8-1.5) mg/dL POC Glucose 115 H 109 H (70-105) Calcium (8.4-10.2) mg/dL 05/24/17 05/24/17 Range/Units 08:15 11:05 WBC (4.5-11.0) K/mm3 Hgb (11.8-15.2) gm/dl Hct (35.5-45.6) % MCV (84-94) fl MCH (28-32) pg [place] % (Auto) (0.0-7.3) % [place] # (0.0-0.8) K/mm3 Potassium 3.0 L (3.6-5.0) mmol/L BUN 4 L (9-20) mg/dL Creatinine 0.6 L (0.8-1.5) mg/dL POC Glucose 116 H (70-105) Calcium 7.0 L D (8.4-10.2) mg/dL Diabetes panel 05/24/17 Range/Units 08:15 Sodium 140 (137-145) mmol/L Potassium 3.0 L (3.6-5.0) mmol/L Chloride 104.7 (98-107) mmol/L Carbon Dioxide 26 (22-30) mmol/L BUN 4 L (9-20) mg/dL Creatinine 0.6 L (0.8-1.5) mg/dL Glucose 98 (75-100) mg/dL Calcium 7.0 L D (8.4-10.2) mg/dL Calcium panel 05/24/17 Range/Units 08:15 Calcium 7.0 L D (8.4-10.2) mg/dL Pituitary panel 05/24/17 Range/Units 08:15 Sodium 140 (137-145) mmol/L Potassium 3.0 L (3.6-5.0) mmol/L Chloride 104.7 (98-107) mmol/L Carbon Dioxide 26 (22-30) mmol/L BUN 4 L (9-20) mg/dL Creatinine 0.6 L (0.8-1.5) mg/dL Glucose 98 (75-100) mg/dL Calcium 7.0 L D (8.4-10.2) mg/dL Adrenal panel 05/24/17 Range/Units 08:15 Sodium 140 (137-145) mmol/L Potassium 3.0 L (3.6-5.0) mmol/L Chloride 104.7 (98-107) mmol/L Carbon Dioxide 26 (22-30) mmol/L BUN 4 L (9-20) mg/dL Creatinine 0.6 L (0.8-1.5) mg/dL Glucose 98 (75-100) mg/dL Calcium 7.0 L D (8.4-10.2) mg/dL - Imaging Additional studies: Right femur x-ray - report reviewed Assessment and Plan - Patient Problems (1) Cellulitis of right thigh Current Visit: Yes Status: Acute Plan to address problem: Patient is stable. I think there may be an underlying abscess. Due to the severity of the infection, I think the patient will better tolerate an exam under anesthesia. My plan is to take the patient to the operating room tomorrow and begin the evaluation with ultrasound while patient is anesthetized. Once I've identified a fluid collection then I will incise that area. Procedure, risks, benefits, alternatives were discussed with the patient. All questions were answered. Patient wishes to proceed with surgery. Consent was obtained. He'll be made NPO after midnight. Surgery scheduled for 730 tomorrow morning. Time=45min
--- NOTE | 2017-05-24 16:29 | Progress Note ---
Assessment and Plan Assessment and plan: 26-year-old -[place] man was admitted for the management of cellulitis, abscess on the right thigh Abscess /cellulitis on the right thigh - Patient is on IV antibiotic - Surgery consulted for the drainage of the abscess Insulin dependent DM - On long-acting and sliding scale insulin - Well-controlled Disposition - Possible D/C after drainage of the abscess. History Interval history: Patient was seen and divided this morning, patient's complaining pain on the right thigh. Hospitalist Physical - Physical exam Narrative exam: Not in cardiopulmonary distress. The patient appeared well nourished and normally developed. Vital signs as documented. Head exam is unremarkable. No scleral icterus . Neck is without jugular venous distension, thyromegaly, or carotid bruits. Lungs are clear to auscultation. Cardiac exam reveals regular rate and Rhythm. First and second heart sounds normal. No murmurs, rubs or gallops. Abdominal exam reveals normal bowel sounds, no masses, no organomegaly and no aortic enlargement. Extremities tenderness around the right tigh area, surrounding soft tissue swelling and hardening. HELICOPTER SPECIALIST: Alert and oriented 3. No focal weakness. - Constitutional Vitals: Temp Pulse Resp BP Pulse Ox 99.1 F 93 H 18 142/79 96 05/24/17 15:09 05/24/17 15:09 05/24/17 15:09 05/24/17 15:09 05/24/17 15:09 Results - Labs CBC & Chem 7: 05/24/17 08:15 05/24/17 08:15 Labs: Laboratory Last Values WBC 11.2 K/mm3 (4.5-11.0) H 05/24/17 08:15 RBC 3.99 M/mm3 (3.65-5.03) 05/24/17 08:15 Hgb 10.7 gm/dl (11.8-15.2) L 05/24/17 08:15 Hct 33.0 % (35.5-45.6) L D 05/24/17 08:15 MCV 83 fl (84-94) L 05/24/17 08:15 MCH 27 pg (28-32) L 05/24/17 08:15 MCHC 33 % (32-34) 05/24/17 08:15 RDW 13.3 % (13.2-15.2) 05/24/17 08:15 Plt Count 215 K/mm3 (140-440) 05/24/17 08:15 Lymph % (Auto) 20.5 % (13.4-35.0) 05/24/17 08:15 [place] % (Auto) 13.5 % (0.0-7.3) H 05/24/17 08:15 Eos % (Auto) 0.2 % (0.0-4.3) 05/24/17 08:15 Baso % (Auto) 0.1 % (0.0-1.8) 05/24/17 08:15 Lymph # 2.3 K/mm3 (1.2-5.4) 05/24/17 08:15 [place] # 1.5 K/mm3 (0.0-0.8) H 05/24/17 08:15 Eos # 0.0 K/mm3 (0.0-0.4) 05/24/17 08:15 Baso # 0.0 K/mm3 (0.0-0.1) 05/24/17 08:15 Seg Neutrophils % 65.7 % (40.0-70.0) 05/24/17 08:15 Seg Neutrophils # 7.4 K/mm3 (1.8-7.7) 05/24/17 08:15 Sodium 140 mmol/L (137-145) 05/24/17 08:15 Potassium 3.0 mmol/L (3.6-5.0) L 05/24/17 08:15 Chloride 104.7 mmol/L (98-107) 05/24/17 08:15 Carbon Dioxide 26 mmol/L (22-30) 05/24/17 08:15 Anion Gap 12 mmol/L 05/24/17 08:15 BUN 4 mg/dL (9-20) L 05/24/17 08:15 Creatinine 0.6 mg/dL (0.8-1.5) L 05/24/17 08:15 Estimated GFR > 60 ml/min 05/24/17 08:15 BUN/Creatinine Ratio 7 % 05/24/17 08:15 Glucose 98 mg/dL (75-100) 05/24/17 08:15 POC Glucose 97 (70-105) 05/24/17 15:57 Calcium 7.0 mg/dL (8.4-10.2) L D 05/24/17 08:15
[2017-05-24] MEDS: GUAIFENESIN DM SYRUP PO PRN ×2 (18:41→22:26)
--- NOTE | 2017-05-24 20:40 | Anesthesia Consultation ---
Anesthesia Consult and Med Hx Date of service: 05/24/17 - Airway Anesthetic Teeth Evaluation: Good ROM Head & Neck: Adequate Mental/Hyoid Distance: Adequate Mallampati Class: Class III Intubation Access Assessment: Probably Good - Pulmonary Exam CTA: Yes - Cardiac Exam Cardiac Exam: RRR - Pre-Operative Health Status ASA Pre-Surgery Classification: ASA3 Proposed Anesthetic Plan: General - Pulmonary Hx Smoking: No Hx Asthma: No COPD: No Hx Pneumonia: No - Central Nervous System Hx Psychiatric Problems: No - Endocrine Hx End Stage Renal Disease: No Hx Insulin Dependent Diabetes: Yes (good control since in the hospital) - Other Systems Hx Cancer: No - Additional Comments Anesthesia Medical History Comments: Hypokalemia of 3.0 on 05/24/17
[2017-05-24] MEDS ORDERED: VERSED IV NR (21:00)
[2017-05-25] MEDS: ZOSYN/NS 4.5GM/100ML 4.5 GM/100 ML VIAL IV SCH ×2 (02:35→11:06)
[2017-05-25 06:09] LABS: Basophils % (Auto) 0.2 % (0.0-1.8); Eosinophils # (Auto) 0.1 K/mm3 (0.0-0.4); Hemoglobin 11.2 gm/dl (11.8-15.2); Lymphocytes # (Auto) 2.3 K/mm3 (1.2-5.4); Lymphocytes % (Auto) 22.1 % (13.4-35.0); Mean Corpuscular HGB Conc 34 % (32-34); Mean Corpuscular Hemoglobin 27 pg (28-32); Mean Corpuscular Volume 81 fl (84-94); Monocytes # (Auto) 1.3 K/mm3 (0.0-0.8); Monocytes % (Auto) 12.6 % (0.0-7.3); Platelet Count 258 K/mm3 (140-440); Red Blood Count 4.09 M/mm3 (3.65-5.03); Red Cell Distribution Width 13.3 % (13.2-15.2)
[2017-05-25 06:25] LABS: BUN/Creatinine Ratio 8; Blood Urea Nitrogen 4 mg/dL (9-20); Calcium 7.6 mg/dL (8.4-10.2); Hemolysis Index 1
[2017-05-25] MEDS ORDERED: HYDROGEN PEROXIDE ONE (06:28)
[2017-05-25] MEDS ORDERED: MARCAINE 0.5% 30 ML INFILTRATI ONE (06:28)
--- NOTE | 2017-05-25 07:10 | Anesthesia Day of Surgery ---
Anesthesia Day of Surgery - Day of Surgery Patient Examined: Yes Patient H&P Reviewed: Yes Patient is NPO: Yes
[2017-05-25] MEDS ORDERED: XYLOCAINE MPF 2% ONE ×2 (07:27→08:51)
[2017-05-25] MEDS ORDERED: QUELICIN ONE (07:27)
[2017-05-25] MEDS ORDERED: DIPRIVAN 10 MG/ML IV ONE (07:27)
[2017-05-25] MEDS ORDERED: SUBLIMAZE ONE (07:27)
[2017-05-25] MEDS ORDERED: ZEMURON IV ONE (07:49)
[2017-05-25] MEDS: HumuLIN R SUB-Q SCH ×3 (07:49→16:53)
[2017-05-25] MEDS ORDERED: DILAUDID ONE (07:58)
[2017-05-25] MEDS ORDERED: DILAUDID IV PRN (08:02)
[2017-05-25] MEDS ORDERED: ZOFRAN ONE (08:14)
[2017-05-25] MEDS ORDERED: NEOSTIGMINE ONE (08:16)
[2017-05-25] MEDS ORDERED: ROBINUL ONE (08:16)
--- NOTE | 2017-05-25 08:35 | Post Operative Note ---
Date of procedure: 05/25/17 (Dictation#[id number]) Pre-op diagnosis: Right Posterior Thigh Abscess Post-op diagnosis: same Findings: 6x8cm abscess cavity in subcutaneous tissue Procedure: I&D of right posterior thigh abscess Anesthesia: SANDYA Surgeon: MAYTE MARCUS Estimated blood loss: minimal (~30cc) Pathology: list (culture swabs) Specimen disposition: to lab Condition: stable Disposition: PACU
[2017-05-25] MEDS ORDERED: NACL 0.9% IR ONE (08:47)
[2017-05-25] MEDS ORDERED: MARCAINE 0.5% INFILTRATI ONE (08:47)
--- NOTE | 2017-05-25 08:56 | Operative Report ---
PREOPERATIVE DIAGNOSIS: Right posterior thigh abscess. POSTOPERATIVE DIAGNOSIS: Right posterior thigh abscess. PROCEDURE: Incision and drainage of thigh abscess. ATTENDING PHYSICIAN: Lee Sanders MD ANESTHESIA: General. ESTIMATED BLOOD LOSS: Approximately 30 mL. FINDINGS: Area of induration on the posterior thigh was 16 x 18 cm, area of epidermal sloughing was 5 x 7 cm, abscess cavity, which was in the subcutaneous tissue only was 6 x 8 cm, underlying fascia appeared viable, surrounding tissue was all viable. SPECIMENS: Culture swabs of purulent material. DRAINS: None. COMPLICATIONS: Stable, transferred to Recovery Room. INDICATIONS: This is a 26-year-old male who reports that he had a 2-week period of right leg discomfort that progressed to significant pain and swelling over this past week. The patient presented due to severe pain, identified to have significant cellulitis and induration. General Surgery was consulted. The patient was felt to have most likely a thigh abscess that should best be evaluated under anesthesia as it is very significant in size and the patient was extremely tender, which would preclude a good examination at the bedside. Procedures, benefits were explained to the patient including alternatives. Risks included but were not limited to infection, bleeding, pain, injury to surrounding structures, possible need for further surgery. The patient understood and consented. OPERATIVE NOTE: The patient was brought to the operating room and intubated on the transport bed. Once the patient was intubated, he was placed in the prone position. The patient was turned safely. There were no complications. All pressure points were padded. Sterile prep and drape was performed. Antibiotics were already scheduled. SCDs were in place. Time-out was performed. Prior to prepping, I have done an ultrasound examination. It appeared as though the abscess cavity was restricted to subcutaneous tissue, the underlying muscle did not appear involved and the area of the abscess seemed to be restricted to primarily where the epidermal sloughing was occurring. There was already a point of purulence coming through the skin. With a hemostat, I probed that area that led me to the abscess pocket. My initial plan was to make a vertical incision along the long axis of the thigh for better wound healing. However, the abscess cavity was eventually found to be in a horizontal orientation. Therefore, I modified the incision to go horizontally to facilitate good wound care and packing of the wound. A large amount of purulent material was identified. Culture swabs were taken. We opened up the abscess cavity for most of the length of the cavity, which eventually turned out to be 6 x 8 cm. We thoroughly irrigated out. I broke up any loculations by finger dissection. Once we had irrigated out the wound, I then examined it carefully. It seemed to me that there was some reactive tissue, which I bluntly debrided with the gauze, sponge, and removed some with forceps but the rest of the remaining tissue appeared viable. I did not feel any further sharp dissection was necessary. We packed the wound and held pressure to maintain hemostasis. We then reexamined the wound, washed it out again to make sure there is no further debridement that was necessary. Minimal electrocautery was needed for hemostasis. I then packed the wound, held pressure again one more time and then finally we packed the wound with Kerlix gauze, soaked with 0.5% Marcaine plain. I thought that might help with his postop pain control. We covered the wound with an ABD pad and then loosely wrapped it with Coban. The patient tolerated procedure well. There were no complications. All counts were correct at the end of the case. JOB# [id number] BRITANY/PUNEET
[2017-05-25] MEDS ORDERED: K-DUR PO ONE (10:00)
[2017-05-25] MEDS: PERCOCET 5/325 PO PRN (11:05)
[2017-05-25] MEDS: LOVENOX SUB-Q SCH (11:05)
[2017-05-25] MEDS: PEPCID PO SCH (11:05)
--- NOTE | 2017-05-25 11:33 | Discharge Summary ---
Providers - Providers Date of Admission: 05/23/17 03:41 Date of discharge: 05/25/17 Attending physician: LEESA WOODARD MD 05/23/17 06:14 Consult to Wound/ET Nurse [CONS] Routine Reason For Exam: wound eval 05/24/17 12:18 Consult to Physician [CONS] Routine Comment: Consulting Provider: REJI HARRELL Physician Instructions: Reason For Exam: abscess on rt thigh Primary care physician: SHAYLA SAMS Hospitalization Reason for admission: Abscess on the right thigh Condition: Stable Pertinent studies: femur x-ray no bony abnormality Procedures: Incision and drainage of abscess on the right thigh Hospital course: 26 year old man with Diabetes com to the emergency room because he developed a bump on the back of the right thigh. The bump got bigger and increased in size. He has difficulty walking due to pain. Patient was admitted to the floor and he was on IV antibiotics for sepsis, cellulitis, abscess in the right. General surgery was consulted and incision and drainage was done and abscess was drained. Patient leukocytosis and tachycardia subsided. Patient was discharged home with home wound care, by mouth antibiotics, and pain medication. Patient was hemodynamically stable at the time of discharge. Patient's questions and concerns were addressed at the bedside. Patient was scheduled to see surgery in 2 weeks. Disposition: [id number] HOME UNDER HOME [facility] Time spent for discharge: 31 minutes - Discharge Diagnoses (1) Abscess of right thigh Status: Acute (2) Cellulitis of right thigh Status: Acute (3) Diabetes Status: Chronic Qualifiers: Diabetes mellitus alf insulin use: with alf use Diabetes mellitus complication status: without complication Core Measure Documentation - Palliative Care Palliative Care/ Comfort Measures: Not Applicable - Core Measures Any of the following diagnoses?: none Exam - Physical Exam Narrative exam: Not in cardiopulmonary distress. The patient appeared well nourished and normally developed. Vital signs as documented. Head exam is unremarkable. No scleral icterus . Neck is without jugular venous distension, thyromegaly, or carotid bruits. Lungs are clear to auscultation. Cardiac exam reveals regular rate and Rhythm. First and second heart sounds normal. No murmurs, rubs or gallops. Abdominal exam reveals normal bowel sounds, no masses, no organomegaly and no aortic enlargement. Extremities clean dressing on the right thigh. ELECTRIC FORK OPERATOR: Alert and oriented 3. No focal weakness. - Constitutional Vitals: Temp Pulse Resp BP Pulse Ox 99 F 83 20 137/76 94 05/25/17 09:34 05/25/17 09:34 05/25/17 09:34 05/25/17 09:34 05/25/17 09:34 Plan Activity: no restrictions Weight Bearing Status: Full Weight Bearing Diet: diabetic Wound: per your surgeon's advice, per wound nurse instructions Additional Instructions: Please follow up at [facility] in 1 week Follow up with: ESEQUIEL MARX MD [Referring] - 3-5 Days MAYTE MARCUS MD [Staff Physician] - 14 Days Prescriptions: Clindamycin [Clindamycin CAP] 600 mg PO Q8H #42 capsule oxyCODONE /ACETAMINOPHEN [Percocet 5/325 mg] 1 tab PO Q6H PRN #12 tablet PRN Reason: Pain, Moderate (4-6)
[2017-05-25] MEDS: SODIUM CHLORIDE FLUSH SYRINGE 10 ML IV SCH (13:16)
--- NOTE | 2017-05-25 14:32 | Post Anesthesia Evaluation ---
- Post Anesthesia Evaluation Patient Participated: Yes Airway Patent: Yes Stable Respiratory Function: Yes Nausea/Vomiting: No Temp > 96.8F: Yes Pain Manageable: Yes Adequeate Hydration: Yes Anesthesia Complications: No
[2017-05-25] MEDS: MORPHINE IV PRN (14:52)
[2017-05-25 16:13] VITALS: BP 115/77
== END 2017-05-25 18:00 | disposition home health service (06) | DRG 854 ==
LOC: ED 21:16 → 3A 05-23 03:41
PROVIDERS: ADMIT Internal Medicine; ATTEND Internal Medicine
PROC: 0J9L0ZZ Drainage of Right Upper Leg Subcutaneous Tissue and Fascia, Open Approach (ICD-10-PCS; principal; 2017-05-25)
DX: A41.9 Sepsis, unspecified organism (principal); L03.115 Cellulitis of right lower limb; L02.415 Cutaneous abscess of right lower limb; E11.9 Type 2 diabetes mellitus without complications; Z79.899 Other long term (current) drug therapy; Z82.49 Family history of ischemic heart disease and other diseases of the circulatory system; Z83.3 Family history of diabetes mellitus
CPT/HCPCS: 36415; 80048; 82962; 85025; 85027; 86403; 87040; 87075; 87116; 87186; 96365; 96375; J0330; J1170; J1650; J1815; J2270; J2405; J2543; J2704; J2710; J3010; J3370; J7030

== ENCOUNTER 2017-05-29 08:37 | Outpatient (CLI) | payer OTHER ==
[2017-05-29] MEDS ORDERED: XYLOCAINE TOPICAL 4% TP ONE (09:02)
== END 2017-05-29 08:38 | disposition home or self-care (01) ==
LOC: WOUND 08:37
PROVIDERS: ATTEND Internal Medicine
DX: E11.622 Type 2 diabetes mellitus with other skin ulcer (principal); L97.112 Non-pressure chronic ulcer of right thigh with fat layer exposed
CPT/HCPCS: 99215; G0463

== ENCOUNTER 2017-06-05 08:12 | Outpatient (CLI) | payer OTHER ==
[2017-06-05] MEDS ORDERED: XYLOCAINE TOPICAL 4% TP ONE (08:31)
== END 2017-06-05 08:13 | disposition home or self-care (01) ==
LOC: WOUND 08:12
PROVIDERS: ATTEND Internal Medicine
DX: E11.622 Type 2 diabetes mellitus with other skin ulcer (principal); L97.112 Non-pressure chronic ulcer of right thigh with fat layer exposed